=== PATIENT | male | born 1985 | race Caucasian/White ===

== ENCOUNTER 2018-08-18 18:22 | Emergency (ER) | payer SELFPAY ==
[2018-08-18] MEDS ORDERED: ONDANSETRON INJ 4 MG/2 ML VIAL IV ONE (18:38)
[2018-08-18] MEDS ORDERED: SODIUM CHLORIDE 0.9% 1000ML 1,000 ML IVS ONE ×2 (18:38→20:15)
--- NOTE | 2018-08-18 18:43 | ED.PDOC ---
History of Present Illness - General Chief Complaint: GI Problem Stated Complaint: vomiting,hurts all over Time Seen by Provider: 08/18/18 18:34 Source: patient Exam Limitations: no limitations - History of Present Illness Initial Comments: Albert Scott 33 y/o male working in [employer] worker started at 0700h today got home at [address] h work in his backyard on arrival home then felt exhausted ,weak all over then started vomitng for several times.Had same episode in the past was dx with heat exhaustion. Timing/Duration: other - see hpi Severity: moderate Improving Factors: nothing Worsening Factors: nothing Associated Symptoms: other - see hpi Allergies/Adverse Reactions: Allergies NO KNOWN ALLERGY Allergy (Verified 09/06/15 22:32) Home Medications: Ambulatory Orders NK 09/06/15 Review of Systems - Review of Systems Constitutional: States: see HPI, weakness Gastrointestinal/Abdominal: States: see HPI, vomiting All other Systems: Reviewed and Negative, No Change from Baseline Past Medical History (General) - Patient Medical History Hx Seizures: No Hx Stroke: No Hx Dementia: No Hx Asthma: No Hx of COPD: No Hx Cardiac Disorders: No Hx Congestive Heart Failure: No Hx Pacemaker: No Hx Hypertension: No Hx Thyroid Disease: No Hx Diabetes: No Hx Gastroesophageal Reflux: No Hx Renal Disease: No Hx Cancer: No Hx of HIV: No Hx Hepatitis C: No Hx MRSA: No Surgical History: no surgical history - Vaccination History Hx Tetanus, Diphtheria Vaccination: Yes - >5yrs Hx Influenza Vaccination: No Hx Pneumococcal Vaccination: No - Social History Hx Tobacco Use: Yes Hx Chewing Tobacco Use: No Hx Alcohol Use: Yes Hx Substance Use: No Hx Substance Use Treatment: No Hx Depression: No Hx Physical Abuse: No Hx Emotional Abuse: No Hx Suspected Abuse: No - Female History Patient : No Family Medical History - Family History Mother Family History: Unknown Physical Exam - Physical Exam General Appearance: Alert, No apparent distress Eye Exam: bilateral normal Ears, Nose, Throat: hearing grossly normal, normal ENT inspection Neck: supple, normal inspection Respiratory: lungs clear, normal breath sounds, no respiratory distress Cardiovascular/Chest: normal peripheral pulses, regular rate, rhythm, no murmur Peripheral Pulses: radial,right: 2+, radial,left: 2+ Gastrointestinal/Abdominal: non tender, soft Back Exam: normal inspection, no CVA tenderness, no vertebral tenderness Extremity: non-tender, normal inspection, no pedal edema, no calf tenderness Neurologic: alert, oriented x 3 Skin Exam: normal color, warm/dry Progress - Progress Progress: 08/18/18 18:50 Vital Signs - 24 hr 08/18/18 18:32 Temperature 97.2 F L Pulse Rate [ 104 H Left Brachial] Respiratory 20 Rate Blood Pressure 128/85 [Left Arm] O2 Sat by Pulse 98 Oximetry - Results/Orders Results/Orders: Laboratory Tests 08/18/18 08/18/18 08/18/18 18:30 18:30 21:18 WBC 20.4 H* RBC 5.62 Hgb 18.0 Hct 53.2 H MCV 94.5 H MCH 31.9 H MCHC 33.8 RDW 13.1 Plt Count 317 MPV 9.5 Absolute Neuts (auto) Not Reportable Absolute Lymphs (auto) Not Reportable Absolute Monos (auto) Not Reportable Absolute Eos (auto) Not Reportable Neutrophils % Not Reportable Neutrophils % (Manual) 80.0 H Lymphocytes % Not Reportable Lymphocytes % (Manual) 11.0 Monocytes % Not Reportable Monocytes % (Manual) 8.0 Eosinophils % Not Reportable Basophils % Not Reportable Eosinophils 1.0 Platelet Estimate Normal Normal RBC Morphology Normal rbc morph PT 10.6 INR 1.06 PTT (SP) 27.2 Sodium 137 Potassium 4.7 Chloride 96 L Carbon Dioxide 17 L Anion Gap 28.7 H BUN 30 H Creatinine 3.59 H BUN/Creatinine Ratio 8.4 L Random Glucose 144 H Serum Osmolality 282.5 Calcium 12.3 H* Magnesium 2.5 Total Bilirubin 1.4 H Direct Bilirubin 0.1 Indirect Bilirubin 1.3 H AST 40 ALT 39 Alkaline Phosphatase 88 Creatine Kinase 488 H* CK-MB (CK-2) 6.9 H* CK-MB (CK-2) % 1.41 Troponin I < 0.02 Serum Total Protein 11.2 H Albumin > 6.8 H Lipase 49 Urine Color Yellow Urine Appearance Sl cloudy Urine pH 5.5 Ur Specific Starlight >= 1.030 Urine Protein 100 H Urine Glucose (UA) Negative Urine Ketones 40 H Urine Blood Large H Urine Nitrite Negative Urine Bilirubin Moderate Urine Urobilinogen 0.2 Ur Leukocyte Esterase Negative Urine RBC 0 Urine WBC 1-3 Ur Epithelial Cells 0 Urine Bacteria 1+ Hyaline Casts 20-30 Urine Mucus Small Recommended hospital OBS patient declined stated feeling better does not feel nauseated or throwing wants to try oral rehydration at home and he will have a follow up with his dads Md on Friday before going back to work.Had 2 L of IVF and had urinated Departure - Departure Clinical Impression: Dehydration, moderate Heat exhaustion due to water depletion Qualifiers: Encounter type: initial encounter Qualified Code(s): T67.3XXA - Heat exhaustion, anhydrotic, initial encounter Nausea & vomiting Qualifiers: Vomiting type: unspecified Vomiting Intractability: non-intractable Qualified Code(s): R11.2 - Nausea with vomiting, unspecified Acute renal failure Qualifiers: Acute renal failure type: unspecified Qualified Code(s): N17.9 - Acute kidney failure, unspecified Time of Disposition: 21:54 Disposition: Discharge to Home or Self Care Condition: Fair Departure Forms: ED Discharge - Pt. Copy, Patient Portal Self Enrollment Instructions: Heat Exhaustion and Heat Stroke (DC), Dehydration, Adult (DC) Diet: other - Need to increase FLUID INTAKE Home Medications: Ambulatory Orders NK 09/06/15 Additional Instructions: RETURN TO EMERGENCY ROOM IF SYMPTOMS WORSENS;NEED TO REPEAT BLOOD WORK -CMP with your primary Md 24 August 2018;Off WORK 20 August 2018-August 2017.
[2018-08-18] MEDS ORDERED: raNITIdine HCL INJ 50 MG in SODIUM CHLORIDE 0.9% 50ML 50 ML IVPB ONE (18:45)
[2018-08-18] MEDS ORDERED: raNITIdine HCL INJ 25 MG/ML VIAL ONE (18:46)
[2018-08-18] MEDS ORDERED: SODIUM CHLORIDE 0.9% 50ML 50 ML ONE (18:46)
[2018-08-18 21:49] VITALS: O2SAT 99
[2018-08-18] MEDS ORDERED: ONDANSETRON ODT (ER DISP) 8 MG TAB PO ONE (21:55)
[2018-08-18 22:19] VITALS: BP 136/71; TEMP 98
== END 2018-08-18 22:18 | disposition home or self-care (01) ==
LOC: ER 18:22
DX: T67.3XXA Heat exhaustion, anhydrotic, initial encounter (principal); E86.0 Dehydration; E83.52 Hypercalcemia; R11.2 Nausea with vomiting, unspecified; N17.9 Acute kidney failure, unspecified; Z87.891 Personal history of nicotine dependence; Y99.0 Civilian activity done for income or pay; Y92.69 Other specified industrial and construction area as the place of occurrence of the external cause
CPT/HCPCS: 36415; 80048; 80076; 80307; 81001; 82550; 82553; 83690; 84484; 85025; 85610; 85730; 93005; A4216; J2060; J2405; J2780; J7030